=== PATIENT | male | born 1945 | race Caucasian/White ===

== ENCOUNTER → 2016-11-30 | Outpatient (CLI) | payer OTHER ==
[~2016-11-30] MED LIST: ASPIRIN81 M1 PO; ATROVENT I0.5 MG/2.5 INH; AUGMENTIN 875 M1 TA1 PO; BIAXIN500 MG PO; BRIMONIDINE TART5 ML OPH; CARDIZEM LA180 MG PO; CEFTIN500 M1 PO; CHEST CONGESTI400 MG PO; CIPRODEX 0.3%-7.5 ML OT; CLARITIN10 MG PO; COUMADIN10 M1 PO; Coumadin5 MG PO; DILTIAZEM240 MG PO; DOXYCYCLINE100 M3 PO; FLAGYL500 MG PO; FLONASE0.05 MG/AC NS; G-FENESIN400 MG PO; GUAFENESIN400 MG PO; GUAIFENESIN600 MG PO; GUIAFENESIN/PSE1 TE1 PO; HYDROXYZINE PAM25 M1 PO; LASIX40 MG PO; MOM30 M1 PO; NAPROXEN D/R500 MG PO; NASAREL1 EA NAS; PERCOCET 325 MG1 TA2 PO; PERCOCET 325 MG1 TA5 PO; PREDNISONE1 MG PO; PREDNISONE10 MG PO; PREDNISONE20 MG PO; RESTASIS 0.4 M0.4 M1 OP; RESTASIS0.05% OU; ROBITUSSIN AC 110 ML PO; SINGULAIR10 MG PO; SPIRIVA18 MCG IH; SYMBICORT1 AE1 PO; TYLENOL325 M2 PO; VIBRA-TAB100 MG PO; VIBRAMYCIN100 MG PO; XOPENEX HF0.045 MG/A IH; XOPENEX0.63 MG INH; ZITHROMAX500 MG PO; potassium chloride PO; prednisone PO
== END | disposition home or self-care (01) ==
LOC: RAD 09:47
DX: J44.1 Chronic obstructive pulmonary disease with (acute) exacerbation (principal); I10 Essential (primary) hypertension; R06.02 Shortness of breath; R05 Cough; Z87.891 Personal history of nicotine dependence

== ENCOUNTER → 2017-08-24 | Outpatient (CLI) | payer OTHER | LOC: CARD 08-17 09:30 | DX: I34.0 Nonrheumatic mitral (valve) insufficiency (principal); I35.8 Other nonrheumatic aortic valve disorders ==

== ENCOUNTER → 2017-10-04 | Outpatient (CLI) | payer OTHER | END | disposition home or self-care (01) | LOC: CT 08:40 | DX: I25.10 Atherosclerotic heart disease of native coronary artery without angina pectoris (principal); R91.8 Other nonspecific abnormal finding of lung field; J44.9 Chronic obstructive pulmonary disease, unspecified ==

== ENCOUNTER 2018-08-21 13:25 | Emergency (ER) | payer OTHER ==
[~2018-08-21] VITALS: Ht 182.8 cm; Wt 99.8 kg
[2018-08-21] MEDS ORDERED: PREDNISONE10 MG PO (13:39)
== END 2018-08-21 14:46 | disposition home or self-care (01) ==
LOC: ED 13:25
DX: M75.21 Bicipital tendinitis, right shoulder (principal); R03.0 Elevated blood-pressure reading, without diagnosis of hypertension; I48.91 Unspecified atrial fibrillation; J44.9 Chronic obstructive pulmonary disease, unspecified; E11.9 Type 2 diabetes mellitus without complications; K21.9 Gastro-esophageal reflux disease without esophagitis; E66.9 Obesity, unspecified; Z88.8 Allergy status to other drugs, medicaments and biological substances; Z88.1 Allergy status to other antibiotic agents; Z79.2 Long term (current) use of antibiotics; Z79.899 Other long term (current) drug therapy; Z87.891 Personal history of nicotine dependence

== ENCOUNTER → 2019-05-09 | Outpatient (CLI) | payer OTHER | END | disposition home or self-care (01) | LOC: CT 10:14 | DX: J32.1 Chronic frontal sinusitis (principal); J34.89 Other specified disorders of nose and nasal sinuses; J33.9 Nasal polyp, unspecified ==

== ENCOUNTER 2019-09-11 08:04 | Emergency (ER) | payer OTHER ==
[~2019-09-11] VITALS: Ht 177.8 cm; Wt 99.8 kg
[2019-09-11] MEDS ORDERED: AUGMENTIN 875875 MG PO (08:52)
== END 2019-09-11 08:59 | disposition home or self-care (01) ==
LOC: ED 08:04
DX: H66.92 Otitis media, unspecified, left ear (principal); H92.01 Otalgia, right ear; I48.91 Unspecified atrial fibrillation; J44.9 Chronic obstructive pulmonary disease, unspecified; E11.9 Type 2 diabetes mellitus without complications; K21.9 Gastro-esophageal reflux disease without esophagitis; E66.9 Obesity, unspecified; Z88.1 Allergy status to other antibiotic agents; Z88.6 Allergy status to analgesic agent; Z88.8 Allergy status to other drugs, medicaments and biological substances; Z87.891 Personal history of nicotine dependence; Z68.34 Body mass index [BMI] 34.0-34.9, adult; Z79.899 Other long term (current) drug therapy

== ENCOUNTER → 2019-09-21 | Outpatient (CLI) | payer OTHER ==
[~2019-09-21] MED LIST changes: +AUGMENTIN 875875 MG PO
== END | disposition home or self-care (01) ==
LOC: RAD 10:32
DX: Z01.818 Encounter for other preprocedural examination (principal); J32.4 Chronic pansinusitis; J44.9 Chronic obstructive pulmonary disease, unspecified

== ENCOUNTER 2020-04-09 08:28 | Emergency (ER) | payer OTHER ==
[~2020-04-09] VITALS: Ht 182.8 cm; Wt 99.8 kg
[2020-04-09 09:27] LABS: BASO # 0.1 10*3/uL (0.0-0.1); BASO % 0.7 % (0.0-1.0); EOS # 0.7 10*3/uL (0.0-0.4); EOS % 7.9 % (1.0-4.0); HEMATOCRIT 48.3 % (42.0-52.0); LYMPH # 2.6 10*3/uL (1.3-4.4); MEAN CELL VOLUME 87.8 fl (80.0-94.0); MEAN CORPUSCULAR HGB 28.7 pg (27.0-31.0); MEAN CORPUSCULAR HGB CONC 32.7 g/dl (33.0-37.0); MEAN PLATELET VOLUME 9.4 fl (9.6-12.3); MONO # 0.8 10*3/uL (0.1-1.0); MONO % 9.9 % (3.0-9.0); NEUT # 4.2 10*3/uL (2.3-7.9); NEUT % 49.8 % (47.0-73.0); PLATELET COUNT AUTOMATED 278 10*3/uL (130-400); RED CELL DISTRI WIDTH 14.7 % (0-14.5); WHITE BLOOD COUNT 8.5 10*3/uL (4.8-10.8)
[2020-04-09 09:39] LABS: ACT PARTIAL THROMBO TIME 28.9 SECONDS (20.0-32.1)
[2020-04-09 09:48] LABS: ALBUMIN 3.4 gm/dl (3.1-4.5); ALKALINE PHOSPHATASE 86 U/L (45-117); BUN 15 mg/dl (7-24); CHLORIDE 103 mmol/L (98-107); CREATININE 0.92 mg/dL (0.70-1.30); POTASSIUM 4.1 mmol/L (3.5-5.1); SGOT/AST 22 IU/L (3-35); SGPT/ALT 25 U/L (12-78); SODIUM 134 mmol/L (136-145); TOTAL PROTEIN 7.4 gm/dL (6.4-8.2)
[2020-04-09 10:03] LABS: TROPONIN I < 0.015 ng/ml (<0.045)
[2020-04-09] MEDS ORDERED: XARELTO20 M1 PO (10:25)
== END 2020-04-09 10:34 | disposition home or self-care (01) ==
LOC: ED 08:28
PROVIDERS: Emergency Medicine
DX: I48.91 Unspecified atrial fibrillation (principal); F41.9 Anxiety disorder, unspecified; I10 Essential (primary) hypertension; J44.9 Chronic obstructive pulmonary disease, unspecified; Z88.8 Allergy status to other drugs, medicaments and biological substances; Z79.899 Other long term (current) drug therapy

== ENCOUNTER → 2020-04-22 | Outpatient (CLI) | payer OTHER ==
[~2020-04-22] MED LIST changes: +XARELTO20 M1 PO
== END | disposition home or self-care (01) ==
LOC: CARD 13:00
DX: I48.91 Unspecified atrial fibrillation (principal); Z79.899 Other long term (current) drug therapy

== ENCOUNTER → 2020-04-28 | Outpatient (CLI) | payer OTHER ==
[~2020-04-28] MED LIST changes: +24 HOUR ALLERG9.9 ML NAS; +AZELASTINE137 MCG/0. NAS; +MUCUS RELIEF400 MG PO; +MULTIVITAMINS1 EAC6 PO; +SINGULAIR10 M1 PO; +TENORMIN25 MG PO; +VITAMIN D3 PO
== END | disposition home or self-care (01) ==
LOC: ORTHO 00:50
PROVIDERS: ATTEND Psychiatry & Neurology Psychiatry
DX: M25.561 Pain in right knee (principal); I70.201 Unspecified atherosclerosis of native arteries of extremities, right leg

== ENCOUNTER → 2020-04-29 | Outpatient (CLI) | payer OTHER ==
--- NOTE | 2020-04-29 11:10 | NUR ---
INFORMED CONSENT SIGNED FOR LEXISCAN STRESS TEST WITH DR. SANCHEZ. REST EKG A-FIB., RBBB, HR 85 BP 120/76. PULSE OX 96% AND LUNGS CLEAR BILATERALLY. COMPLETED ONE MINUTE OF LEXISCAN PROTOCOL RECEIVING LEXISCAN 0.4MG OVER 10 SECONDS. NO ARRHYTHMIAS OR ST CHANGES NOTED. PT C/O WEIRD FEELING. LAST RECOVERY HR 99, BP 124/68. WAITING NUCLEAR SCANNING IN STABLE CONDITION.
== END | disposition home or self-care (01) ==
LOC: CARD 00:11
PROVIDERS: ATTEND Internal Medicine
DX: I48.91 Unspecified atrial fibrillation (principal); R07.9 Chest pain, unspecified

== ENCOUNTER → 2020-05-07 | Outpatient (CLI) | payer OTHER | END | disposition home or self-care (01) | LOC: MRI 05-02 10:00 | PROVIDERS: ATTEND Psychiatry & Neurology Psychiatry | DX: S83.241A Other tear of medial meniscus, current injury, right knee, initial encounter (principal); M17.11 Unilateral primary osteoarthritis, right knee; X58.XXXA Exposure to other specified factors, initial encounter; Y93.89 Activity, other specified; Y92.89 Other specified places as the place of occurrence of the external cause; Y99.8 Other external cause status ==

== ENCOUNTER → 2020-07-14 | Outpatient (CLI) | payer OTHER | END | disposition home or self-care (01) | LOC: COVID19 11:09 | PROVIDERS: ATTEND Internal Medicine | DX: Z20.828 Contact with and (suspected) exposure to other viral communicable diseases (principal) ==

== ENCOUNTER 2020-07-28 03:09 | Emergency (ER) | payer OTHER ==
[~2020-07-28] VITALS: Ht 182.8 cm; Wt 102.1 kg
[2020-07-28 03:36] LABS: BASO # 0.1 10*3/uL (0.0-0.1); BASO % 0.7 % (0.0-1.0); EOS # 0.5 10*3/uL (0.0-0.4); EOS % 3.6 % (1.0-4.0); HEMATOCRIT 44.7 % (42.0-52.0); LYMPH # 3.9 10*3/uL (1.3-4.4); LYMPH % 30.3 % (27.0-41.0); MEAN CELL VOLUME 91.2 fl (80.0-94.0); MEAN CORPUSCULAR HGB 29.4 pg (27.0-31.0); MEAN CORPUSCULAR HGB CONC 32.2 g/dl (33.0-37.0); MEAN PLATELET VOLUME 9.4 fl (9.6-12.3); MONO # 1.3 10*3/uL (0.1-1.0); MONO % 10.1 % (3.0-9.0); NEUT # 6.9 10*3/uL (2.3-7.9); NEUT % 53.2 % (47.0-73.0); PLATELET COUNT AUTOMATED 231 10*3/uL (130-400); RED CELL DISTRI WIDTH 14.6 % (0-14.5); WHITE BLOOD COUNT 12.9 10*3/uL (4.8-10.8)
[2020-07-28 03:51] LABS: ALBUMIN 3.1 gm/dl (3.1-4.5); ALKALINE PHOSPHATASE 73 U/L (45-117); BUN 21 mg/dl (7-24); CHLORIDE 105 mmol/L (98-107); CREATININE 0.91 mg/dL (0.70-1.30); LIPASE 79 U/L (73-393); POTASSIUM 4.2 mmol/L (3.5-5.1); SGOT/AST 20 IU/L (3-35); SGPT/ALT 40 U/L (12-78); SODIUM 137 mmol/L (136-145); TOTAL PROTEIN 6.7 gm/dL (6.4-8.2)
[2020-07-28 03:56] LABS: ETHYL ALCOHOL < 3.0 mg/dl (<3)
[2020-07-28] MEDS ORDERED: FLAGYL500 MG PO (05:56)
== END 2020-07-28 06:21 | disposition home or self-care (01) ==
LOC: ED 03:09
PROVIDERS: Internal Medicine
DX: K80.20 Calculus of gallbladder without cholecystitis without obstruction (principal); D72.829 Elevated white blood cell count, unspecified; R11.2 Nausea with vomiting, unspecified; Z88.8 Allergy status to other drugs, medicaments and biological substances; Z88.1 Allergy status to other antibiotic agents; Z79.899 Other long term (current) drug therapy; Z96.642 Presence of left artificial hip joint; Z98.890 Other specified postprocedural states; Z87.891 Personal history of nicotine dependence

== ENCOUNTER → 2020-08-08 | Outpatient (CLI) | payer OTHER | END | disposition home or self-care (01) | LOC: US 10:25 | PROVIDERS: ATTEND Internal Medicine | DX: K80.20 Calculus of gallbladder without cholecystitis without obstruction (principal) ==

== ENCOUNTER → 2020-08-11 | Outpatient (CLI) | payer OTHER | END | disposition home or self-care (01) | LOC: CARD 00:36 | PROVIDERS: ATTEND Nurse Practitioner Family | DX: I48.0 Paroxysmal atrial fibrillation (principal); I70.0 Atherosclerosis of aorta ==

== ENCOUNTER → 2020-08-15 | Outpatient (CLI) | payer OTHER | END | disposition home or self-care (01) | LOC: NM 00:22 | PROVIDERS: ATTEND Internal Medicine | DX: K80.20 Calculus of gallbladder without cholecystitis without obstruction (principal) ==

== ENCOUNTER → 2020-10-29 | Outpatient (CLI) | payer OTHER | END | disposition home or self-care (01) | LOC: CT 12:54 | PROVIDERS: ATTEND Nurse Practitioner Family | DX: I25.10 Atherosclerotic heart disease of native coronary artery without angina pectoris (principal); K44.9 Diaphragmatic hernia without obstruction or gangrene; K80.20 Calculus of gallbladder without cholecystitis without obstruction; N32.89 Other specified disorders of bladder; Z87.891 Personal history of nicotine dependence ==

== ENCOUNTER → 2021-06-09 | Outpatient (CLI) | payer OTHER | END | disposition home or self-care (01) | LOC: COVID19 15:06 | PROVIDERS: ATTEND Student in an Organized Health Care Education/Training Program | DX: Z11.52 Encounter for screening for COVID-19 (principal) ==

== ENCOUNTER 2022-03-08 07:46 | Inpatient (IN) | payer OTHER ==
[2022-03-08] VITALS (8 sets, daily range): BP systolic 120–145; BP diastolic 64–85
[~2022-03-08] VITALS: Ht 180.3 cm; Wt 100.2 kg
[2022-03-08 08:14] LABS: HEMATOCRIT 32.6 % (42.0-52.0); MEAN CELL VOLUME 108.3 fl (80.0-94.0); MEAN CORPUSCULAR HGB 35.5 pg (27.0-31.0); MEAN CORPUSCULAR HGB CONC 32.8 g/dl (33.0-37.0); NUCLEATED RED BLOOD CELL 0.1 10*3/uL (0.0-0.0); NUCLEATED RED BLOOD CELL 2.8 % (0.0-0.0); PLATELET COUNT AUTOMATED 110 10*3/uL (130-400); RED BLOOD COUNT 3.01 10*6/uL (4.50-5.90); RED CELL DISTRI WIDTH 15.1 % (0-14.5); WHITE BLOOD COUNT 3.9 10*3/uL (4.8-10.8)
[2022-03-08 08:27] LABS: ACT PARTIAL THROMBO TIME 36.6 SECONDS (20.0-32.1); INTERNATIONAL NORM RATIO 1.3 (2.0-3.5)
[2022-03-08 08:33] LABS: ALKALINE PHOSPHATASE 73 U/L (45-117); BUN 16 mg/dl (7-24); CHLORIDE 109 mmol/L (98-107); CREATININE 0.73 mg/dL (0.70-1.30); SGOT/AST 14 IU/L (3-35); SGPT/ALT 20 U/L (12-78); SODIUM 137 mmol/L (136-145); TOTAL PROTEIN 6.5 gm/dL (6.4-8.2)
[2022-03-08 08:44] LABS: MANUAL DIFF REFLEX YES
[2022-03-08 09:07] LABS: BASOPHILS 1 % (0-1); TOTAL CELLS COUNTED 100 #CELLS
[2022-03-08 09:10] LABS: PLATELET SUFFICIENCY LOW (NORMAL)
[2022-03-08 09:13] LABS: BLASTS 3 % (0-0)
[2022-03-08] MEDS ORDERED: CARVEDILOL6.25 MG PO (09:45)
[2022-03-09] VITALS: BP 123/71
[2022-03-09 06:29] LABS: HEMATOCRIT 33.2 % (42.0-52.0); MEAN CELL VOLUME 107.4 fl (80.0-94.0); MEAN CORPUSCULAR HGB 35.6 pg (27.0-31.0); MEAN CORPUSCULAR HGB CONC 33.1 g/dl (33.0-37.0); MEAN PLATELET VOLUME 9.1 fl (9.6-12.3); NUCLEATED RED BLOOD CELL 0.1 10*3/uL (0.0-0.0); NUCLEATED RED BLOOD CELL 4.4 % (0.0-0.0); PLATELET COUNT AUTOMATED 107 10*3/uL (130-400); RED BLOOD COUNT 3.09 10*6/uL (4.50-5.90); RED CELL DISTRI WIDTH 14.8 % (0-14.5); WHITE BLOOD COUNT 2.5 10*3/uL (4.8-10.8)
[2022-03-09 06:30] LABS: RETICULOCYTE % 1.61 % (0.50-2.50)
[2022-03-09 06:42] LABS: BUN 18 mg/dl (7-24); CHLORIDE 106 mmol/L (98-107); CREATININE 0.67 mg/dL (0.70-1.30); POTASSIUM 4.2 mmol/L (3.5-5.1); SODIUM 134 mmol/L (136-145)
[2022-03-09 07:03] LABS: LDH 259 U/L (87-241)
[2022-03-09 07:24] LABS: MANUAL DIFF REFLEX YES
[2022-03-09 07:37] LABS: BASOPHILS 1 % (0-1); TOTAL CELLS COUNTED 100 #CELLS
[2022-03-09 07:42] LABS: BLASTS 1 % (0-0); PLATELET SUFFICIENCY LOW (NORMAL)
[2022-03-09 07:43] LABS: BURR CELLS FEW
[2022-03-09 08:00] VITALS: BP 124/62
[2022-03-09 12:00] VITALS: BP 100/64
[2022-03-09 16:00] VITALS: BP 106/59
[2022-03-09 20:00] VITALS: BP 114/73
[2022-03-10] VITALS: BP 115/62
[2022-03-10 05:14] LABS: IRON 95 ug/dL (65-175)
[2022-03-10 08:00] VITALS: BP 135/79
[2022-03-10 12:00] VITALS: BP 132/80
[2022-03-10] MEDS ORDERED: AZITHROMYCIN500 M2 PO (14:56)
[2022-03-10] MEDS ORDERED: CEFDINIR300 MG PO (14:56)
[2022-03-10 16:00] VITALS: BP 142/82
[2022-03-11 15:06] LABS: A/G RATIO 0.9 (0.7-1.7); ALBUMIN 2.9 g/dL (2.9-4.4); ALPHA-1-GLOBULIN 0.3 g/dL (0.0-0.4); ALPHA-2-GLOBULIN 0.8 g/dL (0.4-1.0); GLOBULIN, TOTAL 3.1 g/dL (2.2-3.9); M-SPIKE Not Observed g/dL (Not Observed)
== END 2022-03-10 16:16 | disposition home or self-care (01) | DRG 193 ==
LOC: ED 07:46 → EDHOLD 10:13 → 4E 10:13
PROVIDERS: Emergency Medicine; Registered Nurse; ADMIT Internal Medicine; ATTEND Internal Medicine
DX: J18.9 Pneumonia, unspecified organism (principal); R65.11 Systemic inflammatory response syndrome (SIRS) of non-infectious origin with acute organ dysfunction; J44.1 Chronic obstructive pulmonary disease with (acute) exacerbation; D61.818 Other pancytopenia; K21.9 Gastro-esophageal reflux disease without esophagitis; F41.9 Anxiety disorder, unspecified; I48.91 Unspecified atrial fibrillation; E11.9 Type 2 diabetes mellitus without complications; E66.9 Obesity, unspecified; Z96.642 Presence of left artificial hip joint; Z88.6 Allergy status to analgesic agent; Z88.1 Allergy status to other antibiotic agents; Z88.8 Allergy status to other drugs, medicaments and biological substances; Z98.49 Cataract extraction status, unspecified eye; Z82.49 Family history of ischemic heart disease and other diseases of the circulatory system; Z80.1 Family history of malignant neoplasm of trachea, bronchus and lung; Z87.39 Personal history of other diseases of the musculoskeletal system and connective tissue; Z68.30 Body mass index [BMI] 30.0-30.9, adult

== ENCOUNTER 2022-04-17 19:07 | Emergency (ER) | payer OTHER ==
[~2022-04-17] VITALS: Ht 180.3 cm; Wt 99.8 kg
[~2022-04-17 19:07] MED LIST changes: +AZITHROMYCIN500 M2 PO; +CARVEDILOL6.25 MG PO; +CEFDINIR300 MG PO
[2022-04-17] MEDS ORDERED: ATIVAN1 MG PO (19:41)
== END 2022-04-17 19:50 | disposition home or self-care (01) ==
LOC: ED 19:07
DX: F41.9 Anxiety disorder, unspecified (principal); Z88.8 Allergy status to other drugs, medicaments and biological substances; Z88.1 Allergy status to other antibiotic agents; Z79.899 Other long term (current) drug therapy; Z98.890 Other specified postprocedural states; Z87.891 Personal history of nicotine dependence; Z90.89 Acquired absence of other organs

== ENCOUNTER 2022-05-11 04:37 | Observation (INO) | payer OTHER ==
[~2022-05-11] VITALS: Ht 177.8 cm
[~2022-05-11 04:37] MED LIST changes: +ATIVAN1 MG PO; +FUROSEMIDE40 MG PO; +METRONIDAZOLE500 M1 PO; +MIRTAZAPINE15 M2 PO
[2022-05-11 04:38] VITALS: BP 104/57
[2022-05-11 05:19] LABS: ALKALINE PHOSPHATASE 94 U/L (45-117); BUN 13 mg/dl (7-24); CHLORIDE 101 mmol/L (98-107); CREATININE 0.86 mg/dL (0.70-1.30); POTASSIUM 3.7 mmol/L (3.5-5.1); SGOT/AST 20 IU/L (3-35); SGPT/ALT 15 U/L (12-78); SODIUM 133 mmol/L (136-145); TOTAL PROTEIN 6.7 gm/dL (6.4-8.2)
[2022-05-11 06:03] LABS: HEMATOCRIT 25.5 % (42.0-52.0); MEAN CELL VOLUME 110.4 fl (80.0-94.0); MEAN CORPUSCULAR HGB 34.6 pg (27.0-31.0); MEAN CORPUSCULAR HGB CONC 31.4 g/dl (33.0-37.0); MEAN PLATELET VOLUME 11.2 fl (9.6-12.3); NUCLEATED RED BLOOD CELL 0.7 10*3/uL (0.0-0.0); NUCLEATED RED BLOOD CELL 7.6 % (0.0-0.0); PLATELET COUNT AUTOMATED 39 10*3/uL (130-400); RED BLOOD COUNT 2.31 10*6/uL (4.50-5.90); RED CELL DISTRI WIDTH 19.1 % (0-14.5); WHITE BLOOD COUNT 9.5 10*3/uL (4.8-10.8)
[2022-05-11 06:09] LABS: MANUAL DIFF REFLEX YES
[2022-05-11 06:32] LABS: INTERNATIONAL NORM RATIO 1.4 (2.0-3.5)
[2022-05-11 06:44] LABS: BASOPHILS 2 % (0-1); TOTAL CELLS COUNTED 100 #CELLS
[2022-05-11 06:51] LABS: BLASTS 4 % (0-0)
[2022-05-11 06:53] LABS: PLATELET SUFFICIENCY LOW (NORMAL); TARGET CELLS FEW
[2022-05-11 07:37] VITALS: BP 117/91
[2022-05-11] MEDS ORDERED: MUCINEX1200 M1 PO (08:11)
[2022-05-11 10:29] VITALS: BP 102/55
[2022-05-11 15:30] VITALS: BP 110/53
[2022-05-11 18:00] VITALS: BP 120/54
[2022-05-11 20:00] VITALS: BP 121/63
[2022-05-12] VITALS: BP 108/55
[2022-05-12 08:00] VITALS: BP 124/55
[2022-05-12 12:00] VITALS: BP 122/51
[2022-05-12 13:52] LABS: BUN 19 mg/dl (7-24); CHLORIDE 101 mmol/L (98-107); CREATININE 1.01 mg/dL (0.70-1.30); POTASSIUM 3.8 mmol/L (3.5-5.1); SODIUM 134 mmol/L (136-145)
[2022-05-12 16:00] VITALS: BP 107/48
[2022-05-12 20:00] VITALS: BP 99/44
[2022-05-13] VITALS: BP 96/47
[2022-05-13 06:12] LABS: BUN 19 mg/dl (7-24); CHLORIDE 102 mmol/L (98-107); CREATININE 0.81 mg/dL (0.70-1.30); POTASSIUM 3.5 mmol/L (3.5-5.1); SGOT/AST 17 IU/L (3-35); SGPT/ALT 14 U/L (12-78); SODIUM 134 mmol/L (136-145); TOTAL PROTEIN 6.2 gm/dL (6.4-8.2)
[2022-05-13 06:16] LABS: ALKALINE PHOSPHATASE 78 U/L (45-117)
[2022-05-13 06:19] LABS: HEMATOCRIT 21.8 % (42.0-52.0); MEAN CELL VOLUME 108.5 fl (80.0-94.0); MEAN CORPUSCULAR HGB 35.3 pg (27.0-31.0); MEAN CORPUSCULAR HGB CONC 32.6 g/dl (33.0-37.0); MEAN PLATELET VOLUME 11.5 fl (9.6-12.3); NUCLEATED RED BLOOD CELL 0.7 10*3/uL (0.0-0.0); NUCLEATED RED BLOOD CELL 7.4 % (0.0-0.0); PLATELET COUNT AUTOMATED 32 10*3/uL (130-400); RED BLOOD COUNT 2.01 10*6/uL (4.50-5.90); RED CELL DISTRI WIDTH 19.2 % (0-14.5); WHITE BLOOD COUNT 8.9 10*3/uL (4.8-10.8)
[2022-05-13 06:39] LABS: MANUAL DIFF REFLEX YES
[2022-05-13 07:33] LABS: BASOPHILS 1 % (0-1); TOTAL CELLS COUNTED 100 #CELLS
[2022-05-13 07:34] LABS: BLASTS 2 % (0-0)
[2022-05-13 07:35] LABS: BURR CELLS FEW; PLATELET SUFFICIENCY LOW (NORMAL)
[2022-05-13 08:00] VITALS: BP 117/62
[2022-05-13 12:00] VITALS: BP 108/59
[2022-05-13 16:00] VITALS: BP 109/59
== END 2022-05-13 17:19 | disposition home or self-care (01) ==
LOC: ED 04:37 → 4E 07:57 → EDHOLD 07:57 → 4E 17:25
PROVIDERS: Emergency Medicine; ADMIT Internal Medicine; ATTEND Internal Medicine
DX: I50.9 Heart failure, unspecified (principal); R79.89 Other specified abnormal findings of blood chemistry; E88.09 Other disorders of plasma-protein metabolism, not elsewhere classified; E87.1 Hypo-osmolality and hyponatremia; K21.9 Gastro-esophageal reflux disease without esophagitis; J44.9 Chronic obstructive pulmonary disease, unspecified; E11.9 Type 2 diabetes mellitus without complications; I48.91 Unspecified atrial fibrillation; Z79.899 Other long term (current) drug therapy; Z88.1 Allergy status to other antibiotic agents; Z87.891 Personal history of nicotine dependence

== ENCOUNTER 2022-06-09 12:13 | Emergency (ER) | payer OTHER ==
[~2022-06-09] VITALS: Wt 86.2 kg
[~2022-06-09 12:13] MED LIST changes: +MUCINEX1200 M1 PO
[2022-06-09 12:56] LABS: MEAN CELL VOLUME 121.1 fl (80.0-94.0); MEAN CORPUSCULAR HGB 35.5 pg (27.0-31.0); MEAN CORPUSCULAR HGB CONC 29.3 g/dl (33.0-37.0); MEAN PLATELET VOLUME 11.1 fl (9.6-12.3); NUCLEATED RED BLOOD CELL 1.2 10*3/uL (0.0-0.0); NUCLEATED RED BLOOD CELL 17.2 % (0.0-0.0); RED BLOOD COUNT 1.52 10*6/uL (4.50-5.90); RED CELL DISTRI WIDTH 23.6 % (0-14.5); WHITE BLOOD COUNT 6.7 10*3/uL (4.8-10.8)
[2022-06-09 13:04] LABS: ACT PARTIAL THROMBO TIME 48.1 SECONDS (20.0-32.1); INTERNATIONAL NORM RATIO 2.3 (2.0-3.5)
[2022-06-09 13:12] LABS: ALKALINE PHOSPHATASE 96 U/L (45-117); BUN 33 mg/dl (7-24); CHLORIDE 106 mmol/L (98-107); CREATININE 1.17 mg/dL (0.70-1.30); LIPASE 47 U/L (73-393); SGOT/AST 18 IU/L (3-35); SGPT/ALT 18 U/L (12-78); SODIUM 135 mmol/L (136-145); TOTAL PROTEIN 6.8 gm/dL (6.4-8.2)
[2022-06-09 13:13] LABS: MANUAL DIFF REFLEX YES
[2022-06-09 13:16] LABS: ATYPICAL LYMPHS 3 % (0-0); BASOPHILS 4 % (0-1); POLYCHROMASIA SLIGHT; TARGET CELLS FEW; TOTAL CELLS COUNTED 100 #CELLS
[2022-06-09 13:17] LABS: OVALOCYTES FEW; PLATELET SUFFICIENCY LOW (NORMAL); ROULEAUX SLIGHT; SCHISTOCYTES FEW
[2022-06-09 13:19] LABS: BLASTS 11 % (0-0); HEMATOCRIT 18.4 % (42.0-52.0)
[2022-06-09 13:20] LABS: PLATELET COUNT AUTOMATED 22 10*3/uL (130-400)
[2022-06-09 15:28] VITALS: BP 113/43
[2022-06-09 16:28] VITALS: BP 113/53
[2022-06-09 18:40] VITALS: BP 115/59
[2022-06-09 19:21] VITALS: BP 115/59
[2022-06-09 19:36] VITALS: BP 116/53
== END 2022-06-09 19:49 | disposition short-term general hospital (02) ==
LOC: ED 12:13
PROVIDERS: Emergency Medicine
DX: J96.01 Acute respiratory failure with hypoxia (principal); Z20.822 Contact with and (suspected) exposure to COVID-19; D64.9 Anemia, unspecified; J18.9 Pneumonia, unspecified organism; Z88.8 Allergy status to other drugs, medicaments and biological substances; Z88.1 Allergy status to other antibiotic agents; Z79.899 Other long term (current) drug therapy; Z87.891 Personal history of nicotine dependence